=== PATIENT | female | born 1970 | race Caucasian/White ===

== ENCOUNTER → 2017-08-12 | Outpatient (CLI) | payer BC ==
--- NOTE | 2017-08-13 09:18 | MM ---
Reason for exam: screening (asymptomatic). Last mammogram was performed 2 years and 4 months ago. History: Patient is nulliparous. Took hormonal contraceptives for 4 years beginning at age 19. Physical Findings: A clinical breast exam by your physician is recommended on an annual basis and results should be correlated with mammographic findings. MG 3D Screening Mammo W/Cad Bilateral CC and MLO view(s) were taken. Prior study comparison: April 12, 2015, right breast MG work up mamm w CAD RT. April 09, 2015, bilateral MG screening mammo w CAD. There are scattered fibroglandular densities. No suspicious abnormality. No significant changes when compared with prior studies. ASSESSMENT: Negative, BI-RAD 1 RECOMMENDATION: Routine screening mammogram of both breasts in 1 year.
--- NOTE | 2017-08-14 21:46 | ECHOF ---
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 This was a technically adequate study. The left ventricular size is normal. There is mild concentric left ventricular hypertrophy. Overall left ventricular systolic function is normal with, an EF between 55 - 60 %. Mild asymmetric septal hypertrophy with septal thickness 1.3 - 1.5 cm. The right ventricle is normal in size and function. Normal LA size by volume 22+/-6 ml/m2. The right atrium is normal in size. The aortic valve is trileaflet, and appears structurally normal. No aortic stenosis or regurgitation. The mitral valve leaflets are mildly thickened. There is trace mitral regurgitation. Trace tricuspid regurgitation present. Right ventricular systolic pressure is normal at < 35 mmHg. There is no evidence of pulmonary hypertension. The pulmonic valve was not well visualized. The aortic root size is normal. Normal inferior vena cava with normal inspiratory collapse consistent with estimated right atrial pressure of 5 mmHg. The pericardium is normal. There is no pericardial effusion. CONCLUSIONS -------- 1. Sinus rhythm. 2. Trace tricuspid regurgitation present. 3. Right ventricular systolic pressure is normal at < 35 mmHg. 4. There is no evidence of pulmonary hypertension. 5. The pulmonic valve was not well visualized. 6. The aortic root size is normal. 7. There is no pericardial effusion. 8. This was a technically adequate study. 9. The left ventricular size is normal. 10. There is ASYMMETRIC SEPTAL left ventricular hypertrophy c/w HCM 11. Overall left ventricular systolic function is normal with, an EF between 55 - 60 %. 12. Normal LA size by volume 22+/-6 ml/m2. 13. The aortic valve is trileaflet, and appears structurally normal. No aortic stenosis or regurgitation. 14. The mitral valve leaflets are mildly thickened. 15. There is trace mitral regurgitation. LICENSED AUDIOLOGIST: Juliocesar Irby RDCS
== END | disposition home or self-care (01) ==
LOC: RADMAMWWP 07:38
PROVIDERS: ATTEND General Practice
DX: Z12.31 Encounter for screening mammogram for malignant neoplasm of breast (principal); I08.1 Rheumatic disorders of both mitral and tricuspid valves
CPT/HCPCS: 93306; 77063; G0202

== ENCOUNTER → 2018-07-05 | Outpatient (CLI) | payer BC ==
--- NOTE | 2018-07-05 07:53 | US ---
EXAMINATION TYPE: US kidneys/renal and bladder DATE OF EXAM: 07/05/2018 COMPARISON: NONE CLINICAL HISTORY: R31.9 Hematuria. EXAM MEASUREMENTS: Right Kidney: 12.0 x 4.5x 4.0 cm Left Kidney: 12.6 x 5.3 x 6.3 cm Exam limited due to overlying bowel gas Right Kidney: No hydronephrosis or masses seen Left Kidney: No hydronephrosis or masses seen Bladder: wnl Bilateral Jets seen: Yes There is no evidence for hydronephrosis at this point in time. No nephrolithiasis is seen. No angela s are identified. The urinary bladder is anechoic. Bilateral ureteral jets are seen. IMPRESSION: No hydronephrosis or nephrolithiasis. CT urogram could be performed for further evaluation hematuria if clinically indicated.
== END | disposition home or self-care (01) ==
LOC: RADUSWWP 07:30
PROVIDERS: ATTEND Urology
DX: R31.9 Hematuria, unspecified (principal)
CPT/HCPCS: 76770

== ENCOUNTER → 2018-09-13 | Outpatient (CLI) | payer BC ==
--- NOTE | 2018-09-14 13:47 | MM ---
Reason for exam: screening (asymptomatic). Last mammogram was performed 1 year and 1 month ago. History: Patient is nulliparous. Took hormonal contraceptives for 4 years beginning at age 19. Physical Findings: A clinical breast exam by your physician is recommended on an annual basis and results should be correlated with mammographic findings. MG 3D Screening Mammo W/Cad Bilateral CC and MLO view(s) were taken. Prior study comparison: August 12, 2017, bilateral MG 3d screening mammo w/cad. April 12, 2015, right breast MG work up mamm w CAD RT. There are scattered fibroglandular densities. No suspicious abnormality. Left cardiac device obscures the left pectoralis muscle. No significant changes when compared with prior studies. ASSESSMENT: Negative, BI-RAD 1 RECOMMENDATION: Routine screening mammogram of both breasts in 1 year.
== END | disposition home or self-care (01) ==
LOC: RADMAMWWP 07:42
PROVIDERS: ATTEND Obstetrics & Gynecology
DX: Z12.31 Encounter for screening mammogram for malignant neoplasm of breast (principal)
CPT/HCPCS: 77063; 77067

== ENCOUNTER → 2019-06-15 | Outpatient (CLI) | payer BC ==
[2019-06-16 00:13] LABS: ALT 94 U/L (8-44); AST 30 U/L (13-35)
== END | disposition home or self-care (01) ==
LOC: LABWHC1 15:10
PROVIDERS: ATTEND Podiatrist Foot & Ankle Surgery
DX: K74.60 Unspecified cirrhosis of liver (principal)
CPT/HCPCS: 36415; 84450; 84460

== ENCOUNTER 2019-07-13 09:50 | Day surgery (SDC) | payer BC ==
[2019-07-12 08:37] VITALS: BMI 41.1
[~2019-07-13 09:50] MED LIST: LACTATED RINGERS 1,000 ML IV SCH; LIDOCAINE 1% 20 ML VIAL (10MG/ML) FOR IV START INTRADERMA PRN
[2019-07-13 10:52] VITALS: RESP 16; TEMP 98.8
[2019-07-13] MEDS ORDERED: PROPOFOL 10 MG/ML 20 ML VIAL IV ONE (11:44)
--- NOTE | 2019-07-13 12:00 | P.PCN ---
Date of Procedure: 07/13/19 Procedure(s) Performed: BRIEF HISTORY: Patient is a 49-year-old pleasant female scheduled for an elective colonoscopy as a part of screening for colorectal neoplasia. PROCEDURE PERFORMED: Colonoscopy. PREOPERATIVE DIAGNOSIS: Screening for colon cancer. IV sedation per Anesthesia. PROCEDURE: After informed consent was obtained, the patient, was brought into the endoscopy unit. IV sedation was administered by Anesthesia under continuous monitoring. Digital rectal examination was normal. Initially the Olympus CF-160 flexible video colonoscope was then inserted in the rectum, gradually advanced into the cecum without any difficulty. Careful examination was performed as the scope was gradually being withdrawn. Ileocecal valve and the appendiceal orifice were visualized and appeared normal. Prep was fair. Mucosa of the cecum, ascending colon, transverse colon, descending colon, sigmoid colon, and rectum appeared normal. Retroflexion was performed in the rectum and no lesions were seen. The patient tolerated the procedure well. IMPRESSION: Normal-appearing colon from rectum to cecum with no evidence of colorectal neoplasia . RECOMMENDATIONS: Findings of this examination were discussed with the patient as well as a family. She was advised to have a repeat screening colonoscopy in 10 years.
[2019-07-13 12:22] VITALS: BP 126/77; PULSE 77
== END 2019-07-13 12:45 | disposition home or self-care (01) ==
LOC: ORWHC2ENDO 09:50
PROVIDERS: ATTEND Internal Medicine Gastroenterology
DX: Z12.11 Encounter for screening for malignant neoplasm of colon (principal); I10 Essential (primary) hypertension; I42.2 Other hypertrophic cardiomyopathy; N30.10 Interstitial cystitis (chronic) without hematuria; Z95.810 Presence of automatic (implantable) cardiac defibrillator; Z87.11 Personal history of peptic ulcer disease; Z79.1 Long term (current) use of non-steroidal anti-inflammatories (NSAID); Z79.899 Other long term (current) drug therapy; Z88.0 Allergy status to penicillin
CPT/HCPCS: 84703; G0121; J2704; 45378

== ENCOUNTER → 2019-09-12 | Outpatient (CLI) | payer BC ==
[2019-09-12 18:33] LABS: ALT 14 U/L (8-44); AST 17 U/L (13-35)
== END | disposition home or self-care (01) ==
LOC: LABWHC1 12:07
PROVIDERS: ATTEND Podiatrist Foot & Ankle Surgery
DX: K74.60 Unspecified cirrhosis of liver (principal)
CPT/HCPCS: 36415; 84450; 84460

== ENCOUNTER → 2019-10-07 | Outpatient (CLI) | payer BC ==
--- NOTE | 2019-10-10 09:00 | MM ---
Reason for exam: screening (asymptomatic). Last mammogram was performed 1 year and 1 month ago. History: Patient is nulliparous. Took hormonal contraceptives for 4 years beginning at age 19. Physical Findings: A clinical breast exam by your physician is recommended on an annual basis and results should be correlated with mammographic findings. MG 3D Screening Mammo W/Cad Bilateral CC and MLO view(s) were taken. Prior study comparison: September 13, 2018, bilateral MG 3d screening mammo w/cad. August 12, 2017, bilateral MG 3d screening mammo w/cad. There are scattered fibroglandular densities. Benign appearing bilateral calcifications. No suspicious abnormality. Left cardiac device seen. No significant changes when compared with prior studies. ASSESSMENT: Benign, BI-RAD 2 RECOMMENDATION: Routine screening mammogram of both breasts in 1 year.
== END | disposition home or self-care (01) ==
LOC: RADMAMWWP 08:33
PROVIDERS: ATTEND Obstetrics & Gynecology
DX: Z12.31 Encounter for screening mammogram for malignant neoplasm of breast (principal)
CPT/HCPCS: 77063; 77067